=== PATIENT | male | born 1995 | race Caucasian/White ===

== ENCOUNTER 2016-10-01 13:25 | Emergency (ER) | payer MEDICAID ==
[~2016-10-01] VITALS: Ht 170.2 cm; Wt 68.2 kg
[~2016-10-01 13:25] MED LIST: BENADRYL50 MG PO; PEPCID 20MG TAB20 MG PO; PREDNISONE20 MG PO
[2016-10-01 13:29] VITALS: TEMP 99
[2016-10-01] MEDS ORDERED: TRIUMEQ PO (13:31)
[2016-10-01 15:43] LABS: ADJUSTED CALCIUM 9.3 mg/dL (8.4-10.2); ALBUMIN 4.6 gm/dL (3.5-5.0); BILIRUBIN,TOTAL 1.1 mg/dL (0.0-1.0); CALCIUM 9.8 mg/dL (8.4-10.2); CREATININE, serum 0.91 mg/dL (0.66-1.25); POTASSIUM 4.1 mmol/L (3.4-5.0); TOTAL PROTEIN 8.1 gm/dL (6.4-8.2)
[2016-10-01 15:44] LABS: BASO % 0.5 % (0.0-2.0); EOS # 0.2 (0.0-0.7); EOS % 2.6 % (0-4.0); GRAN # 4.5 (1.4-6.5); HEMATOCRIT 45.7 % (42.0-52.0); HEMOGLOBIN 16.1 g/dl (13.5-18.0); LYMPH # 2.9 (1.2-3.4); LYMPH % 34.2 % (20.0-51.0); MEAN CELL VOLUME 98 fl (80.0-100.0); MEAN CORPUSCULAR HEMOGLOBIN 34 pg (27.0-31.0); MEAN CORPUSCULAR HGB CONC 35 g/dl (33.0-37.0); MEAN PLATELET VOLUME 9.4 fl (7.4-10.4); MONO # 0.7 (0.1-0.6); MONO % 8.5 % (1.7-9.3); PLATELET COUNT 296 K/mm3 (130-400); RED BLOOD COUNT 4.68 M/mm3 (4.20-5.60); REDCELL DISTRIBUTION WIDTH-CV 12.1 % (11.5-14.5); WHITE BLOOD COUNT 8.3 K/mm3 (4.8-10.8)
[2016-10-01 16:13] LABS: PROTHROMBIN TIME 11.4 SECONDS (9.7-12.8)
[2016-10-01] MEDS ORDERED: NEXIUM 40MG40 MG PO (16:33)
[2016-10-01 17:19] LABS: PH 7 (5-8); SQUAMOUS EPITHELIAL 0-2 /hpf; URINE APPEARANCE Turbid; URINE BACTERIA Rare /hpf; URINE BILIRUBIN Negative (NEGATIVE); URINE BLOOD Negative (NEGATIVE); URINE COLOR Yellow; URINE GLUCOSE Negative (NEGATIVE); URINE KETONE Negative (NEGATIVE); URINE WBC None Seen /hpf
[2016-10-01 18:16] VITALS: BP 128/80; PULSE 78
== END 2016-10-01 18:19 | disposition home or self-care (01) ==
LOC: COL.ER 13:25
PROVIDERS: Emergency Medicine
DX: K92.0 Hematemesis (principal); R31.9 Hematuria, unspecified; B20 Human immunodeficiency virus [HIV] disease; R10.12 Left upper quadrant pain
CPT/HCPCS: C9113; J2405; J7030; Q9967

== ENCOUNTER 2017-05-09 17:30 | Emergency (ER) | payer SELFPAY ==
[~2017-05-09] VITALS: Ht 170.2 cm; Wt 72.7 kg
[~2017-05-09 17:30] MED LIST changes: +NEXIUM 40MG40 MG PO; +TRIUMEQ PO
[2017-05-09 17:32] VITALS: BP 119/70; TEMP 99
[2017-05-09] MEDS ORDERED: KLONOPIN 0.5MG0.5 MG PO (17:36)
[2017-05-09] MEDS ORDERED: [UNRECOGNIZED DRUG - OTHER] PO (17:36)
[2017-05-09] MEDS ORDERED: TRIUMEQ PO (17:36)
[2017-05-09] MEDS ORDERED: XANAX .25M0.25 MG/TA PO (17:37)
[2017-05-09] MEDS ORDERED: LEXAPRO20 MG PO (17:38)
[2017-05-09 18:17] LABS: COLLECTION METHOD CLEAN CATCH
[2017-05-09 18:32] LABS: AMORPHOUS CRYSTAL Present /uL; MUCOUS Present /lpf; PH 7 (5-8); SQUAMOUS EPITHELIAL None Seen /hpf; URINE APPEARANCE Turbid; URINE BACTERIA None Seen /hpf; URINE BILIRUBIN Negative (NEGATIVE); URINE BLOOD Negative (NEGATIVE); URINE COLOR Yellow; URINE GLUCOSE Negative (NEGATIVE); URINE KETONE Negative (NEGATIVE); URINE LEUKOCYTE ESTERASE 1+ (NEGATIVE); URINE PROTEIN(semi-quant) Negative (NEGATIVE); URINE RBC 0-2 /hpf; URINE UROBILINOGEN >=4.0 mg/dL (NEGATIVE); URINE WBC None Seen /hpf
[2017-05-09 18:32] LABS: BASO % 0.3 % (0.0-2.0); EOS # 0.3 (0.0-0.7); EOS % 4.1 % (0-4.0); GRAN # 3.2 (1.4-6.5); GRAN % 46.2 % (42.2-75.2); HEMATOCRIT 42.7 % (42.0-52.0); HEMOGLOBIN 14.7 g/dl (13.5-18.0); LYMPH # 2.8 (1.2-3.4); LYMPH % 39.6 % (20.0-51.0); MEAN CELL VOLUME 97 fl (80.0-100.0); MEAN CORPUSCULAR HEMOGLOBIN 33 pg (27.0-31.0); MEAN CORPUSCULAR HGB CONC 34 g/dl (33.0-37.0); MEAN PLATELET VOLUME 9.2 fl (7.4-10.4); MONO # 0.7 (0.1-0.6); MONO % 9.5 % (1.7-9.3); PLATELET COUNT 263 K/mm3 (130-400); RED BLOOD COUNT 4.42 M/mm3 (4.20-5.60)
[2017-05-09 18:34] LABS: ALBUMIN 4.4 gm/dL (3.5-5.0); BILIRUBIN,TOTAL 0.7 mg/dL (0.0-1.0); C-REACTIVE PROTEIN 1.1 mg/dL (0.0-0.9); CALCIUM 9.3 mg/dL (8.4-10.2); CREATININE, serum 0.91 mg/dL (0.66-1.25); POTASSIUM 4.1 mmol/L (3.4-5.0); TOTAL PROTEIN 7.3 gm/dL (6.4-8.2)
[2017-05-09 18:38] LABS: INFLUENZA A NEGATIVE; INFLUENZA B NEGATIVE
[2017-05-09 19:28] VITALS: PULSE 71
== END 2017-05-09 19:30 | disposition home or self-care (01) ==
LOC: COL.ER 17:30
PROVIDERS: Nurse Practitioner
DX: B34.9 Viral infection, unspecified (principal); S83.92XA Sprain of unspecified site of left knee, initial encounter; X50.1XXA Overexertion from prolonged static or awkward postures, initial encounter

== ENCOUNTER → 2018-01-24 | Emergency (ER) | payer BC, MEDICAID ==
[~2018-01-24] VITALS: Ht 170.2 cm; Wt 70.5 kg
[~2018-01-24] MED LIST changes: +CARAFATE 1GM1 G PO; +KLONOPIN 0.5MG0.5 MG PO; +LEXAPRO20 MG PO; +PROTONIX 40MG T40 MG PO; +TRIUMEQ1 TAB PO; +XANAX .25M0.25 MG/TA PO; +ZOFRAN ODT4 MG PO; +[UNRECOGNIZED DRUG - OTHER] PO
[2018-01-24 12:54] VITALS: BP 123/79; TEMP 98.8
[2018-01-24 13:21] LABS: BASO % 0.3 % (0.0-2.0); EOS # 0.1 (0.0-0.7); EOS % 2.2 % (0-4.0); GRAN # 3.1 (1.4-6.5); GRAN % 53.1 % (42.2-75.2); HEMATOCRIT 44.2 % (42.0-52.0); HEMOGLOBIN 15.1 g/dl (13.5-18.0); LYMPH # 2.1 (1.2-3.4); MEAN CELL VOLUME 95 fl (80.0-100.0); MEAN CORPUSCULAR HEMOGLOBIN 32 pg (27.0-31.0); MEAN CORPUSCULAR HGB CONC 34 g/dl (33.0-37.0); MEAN PLATELET VOLUME 8.9 fl (7.4-10.4); MONO # 0.5 (0.1-0.6); MONO % 9.1 % (1.7-9.3); PLATELET COUNT 257 K/mm3 (130-400); RED BLOOD COUNT 4.67 M/mm3 (4.20-5.60); REDCELL DISTRIBUTION WIDTH-CV 12.5 % (11.5-14.5)
[2018-01-24 13:34] LABS: ALANINE AMINOTRANSFERASE 24 U/L (21-72); ALBUMIN 4.5 gm/dL (3.5-5.0); ALKALINE PHOSPHATASE 54 U/L (50-136); ANION GAP 10 mmol/L (7-16); AST,SGOT 18 U/L (15-37); BILIRUBIN,TOTAL 0.8 mg/dL (0.0-1.0); BLOOD UREA NITROGEN 11 mg/dL (9-20); CALCIUM 9.4 mg/dL (8.4-10.2); CARBON DIOXIDE 31 mmol/L (22-30); CHLORIDE 101 mmol/L (98-107); CREATININE, serum 0.72 mg/dL (0.66-1.25); GLUCOSE 92 mg/dL (74-106); LIPASE 61 U/L (23-300); POTASSIUM 4.2 mmol/L (3.4-5.0); SODIUM 141 mmol/L (137-145)
[2018-01-24 13:40] LABS: C-REACTIVE PROTEIN < 0.5 mg/dL (0.0-0.9)
[2018-01-24 13:57] LABS: COLLECTION METHOD CLEAN CATCH
[2018-01-24 14:07] LABS: MUCOUS Present /lpf; PH 7 (5-8); SQUAMOUS EPITHELIAL None Seen /hpf; URINE APPEARANCE Clear; URINE BACTERIA None Seen /hpf; URINE BILIRUBIN Negative (NEGATIVE); URINE BLOOD Negative (NEGATIVE); URINE COLOR Yellow; URINE GLUCOSE Negative (NEGATIVE); URINE KETONE Negative (NEGATIVE); URINE LEUKOCYTE ESTERASE Negative (NEGATIVE); URINE NITRATE Negative (NEGATIVE); URINE PROTEIN(semi-quant) Negative (NEGATIVE); URINE RBC 0-2 /hpf; URINE UROBILINOGEN >=4.0 mg/dL (NEGATIVE)
[2018-01-24 15:22] VITALS: PULSE 81
== END ==
LOC: COL.ER 12:31
PROVIDERS: Emergency Medicine
DX: R11.2 Nausea with vomiting, unspecified (principal); R19.7 Diarrhea, unspecified; F41.9 Anxiety disorder, unspecified; Z21 Asymptomatic human immunodeficiency virus [HIV] infection status
CPT/HCPCS: C9113; J2405; J7030

== ENCOUNTER 2018-01-25 17:32 | Emergency (ER) | payer BC, MEDICAID ==
[~2018-01-25] VITALS: Ht 170.2 cm; Wt 71.8 kg
[~2018-01-25 17:32] MED LIST changes: -TRIUMEQ1 TAB PO
[2018-01-25 17:34] VITALS: TEMP 99.1
[2018-01-25 18:03] LABS: COLLECTION METHOD CLEAN CATCH
[2018-01-25 18:09] LABS: MUCOUS Present /lpf; PH 6 (5-8); SQUAMOUS EPITHELIAL 0-2 /hpf; URINE APPEARANCE Clear; URINE BACTERIA None Seen /hpf; URINE BILIRUBIN Negative (NEGATIVE); URINE BLOOD Negative (NEGATIVE); URINE COLOR Yellow; URINE GLUCOSE Negative (NEGATIVE); URINE KETONE Negative (NEGATIVE); URINE LEUKOCYTE ESTERASE Negative (NEGATIVE); URINE NITRATE Negative (NEGATIVE); URINE PROTEIN(semi-quant) Negative (NEGATIVE); URINE RBC 0-2 /hpf
[2018-01-25 18:14] LABS: TRICYCLIC ANTIDEPRESS URINE NEGATIVE
[2018-01-25] MEDS ORDERED: TRIUMEQ1 TAB PO (18:25)
[2018-01-25 18:31] LABS: BASO % 0.3 % (0.0-2.0); EOS # 0.1 (0.0-0.7); EOS % 1.4 % (0-4.0); GRAN # 3.8 (1.4-6.5); GRAN % 60.1 % (42.2-75.2); HEMATOCRIT 43.4 % (42.0-52.0); HEMOGLOBIN 15.2 g/dl (13.5-18.0); LYMPH % 30.6 % (20.0-51.0); MEAN CELL VOLUME 92 fl (80.0-100.0); MEAN CORPUSCULAR HEMOGLOBIN 32 pg (27.0-31.0); MEAN CORPUSCULAR HGB CONC 35 g/dl (33.0-37.0); MEAN PLATELET VOLUME 8.8 fl (7.4-10.4); MONO # 0.5 (0.1-0.6); MONO % 7.3 % (1.7-9.3); PLATELET COUNT 245 K/mm3 (130-400); REDCELL DISTRIBUTION WIDTH-CV 12.3 % (11.5-14.5)
[2018-01-25 18:47] LABS: ALANINE AMINOTRANSFERASE 21 U/L (21-72); ALBUMIN 4.6 gm/dL (3.5-5.0); ALKALINE PHOSPHATASE 52 U/L (50-136); ANION GAP 11 mmol/L (7-16); AST,SGOT 25 U/L (15-37); BILIRUBIN,TOTAL 1.2 mg/dL (0.0-1.0); BLOOD UREA NITROGEN 10 mg/dL (9-20); CALCIUM 9.4 mg/dL (8.4-10.2); CARBON DIOXIDE 28 mmol/L (22-30); CHLORIDE 100 mmol/L (98-107); CREATININE, serum 0.86 mg/dL (0.66-1.25); GLUCOSE 111 mg/dL (74-106); POTASSIUM 3.6 mmol/L (3.4-5.0); SODIUM 139 mmol/L (137-145); TOTAL PROTEIN 7.9 gm/dL (6.4-8.2)
[2018-01-25 18:56] LABS: ACETAMINOPHEN < 10 ug/mL (10-30); ALCOHOL(ethanol),MEDICAL < 10 mg/dL; SALICYLATE < 1.0 mg/dL
[2018-01-25 21:15] VITALS: BP 127/81; PULSE 98
== END 2018-01-25 21:15 | disposition home or self-care (01) ==
LOC: COL.ER 17:32
PROVIDERS: Nurse Practitioner
DX: F32.9 Major depressive disorder, single episode, unspecified (principal); F41.9 Anxiety disorder, unspecified; Z88.0 Allergy status to penicillin; Z21 Asymptomatic human immunodeficiency virus [HIV] infection status

== ENCOUNTER 2018-04-25 14:30 | Outpatient (RCR) | payer BC, OTHER ==
[~2018-04-25 14:30] MED LIST changes: +TRIUMEQ1 TAB PO
== END 2018-07-24 | disposition home or self-care (01) ==
LOC: MKS.ESL.PT
DX: M51.36 Other intervertebral disc degeneration, lumbar region (principal); M41.84 Other forms of scoliosis, thoracic region; Z79.899 Other long term (current) drug therapy

== ENCOUNTER 2018-09-03 01:09 | Emergency (ER) | payer BC, OTHER ==
[~2018-09-03] VITALS: Ht 170.2 cm; Wt 70.5 kg
[2018-09-03 01:21] VITALS: BP 119/62; PULSE 88; TEMP 99
[2018-09-03] MEDS ORDERED: STRIBILD1 TAB PO (04:08)
[2018-09-03 04:27] LABS: BASO % 0.3 % (0.0-2.0); EOS # 0.2 (0.0-0.7); EOS % 1.9 % (0-4.0); GRAN # 4.4 (1.4-6.5); HEMATOCRIT 40.9 % (42.0-52.0); LYMPH # 3.6 (1.2-3.4); LYMPH % 39.5 % (20.0-51.0); MEAN CELL VOLUME 95 fl (80.0-100.0); MEAN CORPUSCULAR HEMOGLOBIN 33 pg (27.0-31.0); MEAN CORPUSCULAR HGB CONC 34 g/dl (33.0-37.0); MEAN PLATELET VOLUME 9.2 fl (7.4-10.4); MONO # 0.8 (0.1-0.6); PLATELET COUNT 263 K/mm3 (130-400); RED BLOOD COUNT 4.29 M/mm3 (4.20-5.60); REDCELL DISTRIBUTION WIDTH-CV 12.2 % (11.5-14.5)
[2018-09-03 04:38] LABS: ALBUMIN 4.4 gm/dL (3.5-5.0); BILIRUBIN,TOTAL 0.3 mg/dL (0.0-1.0); CALCIUM 9.5 mg/dL (8.4-10.2); POTASSIUM 4.5 mmol/L (3.4-5.0); TOTAL PROTEIN 7.4 gm/dL (6.4-8.2)
[2018-09-03] MEDS ORDERED: BACTRIM DS 8001 TAB PO (04:51)
== END 2018-09-03 05:08 | disposition home or self-care (01) ==
LOC: COL.ER 01:09
PROVIDERS: Emergency Medicine
DX: J18.1 Lobar pneumonia, unspecified organism (principal)

== ENCOUNTER 2019-07-03 22:21 | Emergency (ER) | payer BC, MEDICAID ==
[~2019-07-03] VITALS: Ht 170.2 cm; Wt 72.7 kg
[~2019-07-03 22:21] MED LIST changes: +BACTRIM DS 8001 TAB PO; +STRIBILD1 TAB PO
[2019-07-03 23:08] VITALS: BP 115/57; PULSE 98; TEMP 99.6
[2019-07-04 00:05] LABS: COLLECTION METHOD CLEAN CATCH
[2019-07-04 00:12] LABS: MUCOUS Present /lpf; PH 5 (5-8); SQUAMOUS EPITHELIAL None Seen /hpf; URINE APPEARANCE Clear; URINE BACTERIA None Seen /hpf; URINE BILIRUBIN Negative (NEGATIVE); URINE BLOOD 1+ (NEGATIVE); URINE COLOR Yellow; URINE GLUCOSE Negative (NEGATIVE); URINE KETONE Negative (NEGATIVE); URINE LEUKOCYTE ESTERASE Negative (NEGATIVE); URINE NITRATE Negative (NEGATIVE); URINE PROTEIN(semi-quant) Negative (NEGATIVE); URINE RBC 0-2 /hpf; URINE UROBILINOGEN >=4.0 mg/dL (NEGATIVE)
[2019-07-04 00:20] LABS: TRICYCLIC ANTIDEPRESS URINE NEGATIVE
[2019-07-04 00:51] LABS: BASO % 0.4 % (0.0-2.0); EOS # 0.2 (0.0-0.7); EOS % 2.5 % (0-4.0); GRAN # 2.9 (1.4-6.5); GRAN % 42.5 % (42.2-75.2); HEMATOCRIT 43.5 % (42.0-52.0); LYMPH # 3.1 (1.2-3.4); LYMPH % 45.8 % (20.0-51.0); MEAN CELL VOLUME 93 fl (80.0-100.0); MEAN CORPUSCULAR HEMOGLOBIN 32 pg (27.0-31.0); MEAN CORPUSCULAR HGB CONC 35 g/dl (33.0-37.0); MEAN PLATELET VOLUME 9.4 fl (7.4-10.4); MONO # 0.6 (0.1-0.6); MONO % 8.7 % (1.7-9.3); PLATELET COUNT 279 K/mm3 (130-400); RED BLOOD COUNT 4.69 M/mm3 (4.20-5.60); REDCELL DISTRIBUTION WIDTH-CV 12.5 % (11.5-14.5)
[2019-07-04 01:10] LABS: ALANINE AMINOTRANSFERASE 16 U/L (21-72); ALBUMIN 4.8 gm/dL (3.5-5.0); ALKALINE PHOSPHATASE 57 U/L (50-136); ANION GAP 10 mmol/L (7-16); AST,SGOT 14 U/L (15-37); BILIRUBIN,TOTAL 0.7 mg/dL (0.0-1.0); BLOOD UREA NITROGEN 8 mg/dL (9-20); CALCIUM 9.4 mg/dL (8.4-10.2); CARBON DIOXIDE 27 mmol/L (22-30); CHLORIDE 107 mmol/L (98-107); CREATININE, serum 0.77 (0.66-1.25); GLUCOSE 103 mg/dL (74-106); POTASSIUM 3.9 mmol/L (3.4-5.0); SODIUM 143 mmol/L (137-145); TOTAL PROTEIN 7.9 gm/dL (6.4-8.2)
[2019-07-04 01:14] LABS: ACETAMINOPHEN < 10 ug/mL (10-30); ALCOHOL(ethanol),MEDICAL < 10 mg/dL; C-REACTIVE PROTEIN < 0.5 mg/dL (0.0-0.9); SALICYLATE < 1.0 mg/dL
[2019-07-06] MEDS ORDERED: XANAX .25M0.25 MG/TA PO (00:39)
[2019-07-06] MEDS ORDERED: TRIUMEQ1 TAB PO (00:40)
== END 2019-07-04 04:30 | disposition home or self-care (01) ==
LOC: COL.ER 22:21
PROVIDERS: Nurse Practitioner
DX: T74.11XA Adult physical abuse, confirmed, initial encounter (principal); S80.01XA Contusion of right knee, initial encounter; R52 Pain, unspecified; F41.9 Anxiety disorder, unspecified; F32.9 Major depressive disorder, single episode, unspecified; F15.90 Other stimulant use, unspecified, uncomplicated; R40.2412 Glasgow coma scale score 13-15, at arrival to emergency department; Z21 Asymptomatic human immunodeficiency virus [HIV] infection status; Z88.0 Allergy status to penicillin; X58.XXXA Exposure to other specified factors, initial encounter
CPT/HCPCS: J2060; J7030

== ENCOUNTER 2019-07-05 19:48 | Emergency (ER) | payer BC, MEDICAID ==
[~2019-07-05] VITALS: Ht 170.2 cm; Wt 68.2 kg
[2019-07-05 21:03] VITALS: BP 105/76; PULSE 70; TEMP 98
[2019-07-06] MEDS ORDERED: XANAX .25M0.25 MG/TA PO (00:39)
[2019-07-06] MEDS ORDERED: TRIUMEQ1 TAB PO (00:40)
== END 2019-07-05 22:28 | disposition left against medical advice (07) ==
LOC: COL.ER 19:48
DX: M25.561 Pain in right knee (principal)

== ENCOUNTER → 2019-07-05 | Outpatient (REF) | LOC: COL.ER 19:20 | DX: T74.21XA Adult sexual abuse, confirmed, initial encounter (principal) ==

== ENCOUNTER 2020-05-07 08:39 | Emergency (ER) | payer BC, MEDICAID ==
[~2020-05-07] VITALS: Ht 170.2 cm; Wt 68.2 kg
[2020-05-07 08:50] VITALS: TEMP 98.3
[2020-05-07 09:53] LABS: BASO % 0.2 % (0.0-2.0); EOS # 0.1 (0.0-0.7); EOS % 0.8 % (0-4.0); GRAN # 4.9 (1.4-6.5); GRAN % 56.8 % (42.2-75.2); HEMATOCRIT 42.5 % (42.0-52.0); HEMOGLOBIN 14.5 g/dl (13.5-18.0); LYMPH # 2.9 (1.2-3.4); LYMPH % 33.7 % (20.0-51.0); MEAN CELL VOLUME 94 fl (80.0-100.0); MEAN CORPUSCULAR HEMOGLOBIN 32 pg (27.0-31.0); MEAN CORPUSCULAR HGB CONC 34 g/dl (33.0-37.0); MEAN PLATELET VOLUME 8.8 fl (7.4-10.4); MONO # 0.7 (0.1-0.6); MONO % 8.1 % (1.7-9.3); PLATELET COUNT 262 K/mm3 (130-400); RED BLOOD COUNT 4.54 M/mm3 (4.20-5.60); REDCELL DISTRIBUTION WIDTH-CV 13.1 % (11.5-14.5)
[2020-05-07 10:02] LABS: ALANINE AMINOTRANSFERASE 14 U/L (4-49); ALBUMIN 4.7 gm/dL (3.5-5.0); ALKALINE PHOSPHATASE 66 U/L (50-136); ANION GAP 8 mmol/L (7-16); AST,SGOT 22 U/L (15-37); BILIRUBIN,TOTAL 0.9 mg/dL (0.0-1.0); BLOOD UREA NITROGEN 11 mg/dL (9-20); CALCIUM 9.4 mg/dL (8.4-10.2); CARBON DIOXIDE 27 mmol/L (22-30); CHLORIDE 102 mmol/L (98-107); GLUCOSE 114 mg/dL (74-106); POTASSIUM 3.8 mmol/L (3.4-5.0); SODIUM 137 mmol/L (137-145); TOTAL PROTEIN 7.7 gm/dL (6.4-8.2)
[2020-05-07 10:14] LABS: TROPONIN-I < 0.012 ng/mL (0.000-0.035)
[2020-05-07 10:22] LABS: COLLECTION METHOD CLEAN CATCH
[2020-05-07 10:43] LABS: MUCOUS Present /lpf; PH 5 (5-8); SQUAMOUS EPITHELIAL 0-2 /hpf; URINE APPEARANCE Hazy; URINE BACTERIA None Seen /hpf; URINE BILIRUBIN Positive (NEGATIVE); URINE BLOOD Negative (NEGATIVE); URINE CALCIUM OXALATE CRYSTAL Present /hpf; URINE COLOR Amber; URINE GLUCOSE Negative (NEGATIVE); URINE KETONE Trace (NEGATIVE); URINE LEUKOCYTE ESTERASE Negative (NEGATIVE); URINE NITRATE Negative (NEGATIVE); URINE PROTEIN(semi-quant) 2+ (NEGATIVE); URINE UROBILINOGEN Negative (NEGATIVE)
[2020-05-07 11:09] LABS: TRICYCLIC ANTIDEPRESS URINE NEGATIVE
[2020-05-07] MEDS ORDERED: VOLTAREN 75 DR75 MG PO (11:25)
[2020-05-07 12:44] VITALS: BP 150/80; PULSE 95
== END 2020-05-07 11:50 | disposition home or self-care (01) ==
LOC: COL.ER 08:39
PROVIDERS: Emergency Medicine
DX: S00.01XA Abrasion of scalp, initial encounter (principal); M54.2 Cervicalgia; R55 Syncope and collapse; B20 Human immunodeficiency virus [HIV] disease; F32.9 Major depressive disorder, single episode, unspecified; F41.9 Anxiety disorder, unspecified; Z88.0 Allergy status to penicillin; X50.1XXA Overexertion from prolonged static or awkward postures, initial encounter; Y93.01 Activity, walking, marching and hiking; Y92.091 Bathroom in other non-institutional residence as the place of occurrence of the external cause
CPT/HCPCS: J1885

== ENCOUNTER 2020-11-24 14:08 | Emergency (ER) | payer BC, MEDICAID ==
[~2020-11-24] VITALS: Ht 170.2 cm; Wt 70.5 kg
[~2020-11-24 14:08] MED LIST changes: +VOLTAREN 75 DR75 MG PO
[2020-11-24 14:12] VITALS: TEMP 98.6
[2020-11-24 16:20] VITALS: BP 117/80; PULSE 88
== END 2020-11-24 16:26 | disposition home or self-care (01) ==
LOC: COL.ER 14:08
DX: S01.01XA Laceration without foreign body of scalp, initial encounter (principal); F07.81 Postconcussional syndrome; Y04.2XXA Assault by strike against or bumped into by another person, initial encounter; Y92.009 Unspecified place in unspecified non-institutional (private) residence as the place of occurrence of the external cause
CPT/HCPCS: J1885

== ENCOUNTER 2021-03-10 13:24 | Emergency (ER) | payer BC, MEDICAID ==
[~2021-03-10] VITALS: Ht 170.2 cm; Wt 68.2 kg
[2021-03-10 13:33] VITALS: TEMP 98.3
[2021-03-10 14:06] LABS: HEMOGLOBIN 14.6 g/dl (13.5-18.0); MEAN CELL VOLUME 93 fl (80.0-100.0); MEAN CORPUSCULAR HEMOGLOBIN 32 pg (27.0-31.0); MEAN CORPUSCULAR HGB CONC 34 g/dl (33.0-37.0); MEAN PLATELET VOLUME 9.1 fl (7.4-10.4); PLATELET COUNT 377 K/mm3 (130-400); RED BLOOD COUNT 4.61 M/mm3 (4.20-5.60); REDCELL DISTRIBUTION WIDTH-CV 12.5 % (11.5-14.5)
[2021-03-10 14:37] LABS: ALBUMIN 3.9 gm/dL (3.5-5.0); BILIRUBIN,TOTAL 0.4 mg/dL (0.2-1.2); CALCIUM 9.3 mg/dL (8.4-10.2); CREATININE, serum 0.9 mg/dL (0.72-1.25); POTASSIUM 4.3 mmol/L (3.5-4.5); TOTAL PROTEIN 7.4 gm/dL (6.2-8.1)
[2021-03-10 14:41] LABS: EOSINOPHIL 4 % (0-4); LYMPHOCYTE 43 % (20.0-51.0); NEUTROPHILS 46 % (42.0-75.2)
[2021-03-10 14:44] LABS: PLATELET ESTIMATE NORMAL (NORMAL)
[2021-03-10] MEDS ORDERED: PERCOCET 325 MG1 TA2 PO (16:33)
[2021-03-10] MEDS ORDERED: PREDNISONE20 MG PO (16:33)
[2021-03-10] MEDS ORDERED: CIPRO 500MG TA500 MG PO (16:33)
[2021-03-10] MEDS ORDERED: FLAGYL500 MG PO (16:33)
[2021-03-10 16:40] VITALS: BP 131/89; PULSE 60
== END 2021-03-10 16:42 | disposition home or self-care (01) ==
LOC: COL.ER 13:24
PROVIDERS: Personal Emergency Response Attendant
DX: K62.89 Other specified diseases of anus and rectum (principal); Z21 Asymptomatic human immunodeficiency virus [HIV] infection status; Z79.899 Other long term (current) drug therapy
CPT/HCPCS: J0696; J1200; J2405; J2930; J7030; Q9967

== ENCOUNTER 2022-01-05 20:21 | Emergency (ER) | payer BC, MEDICAID ==
[~2022-01-05] VITALS: Ht 170.2 cm; Wt 63.6 kg
[~2022-01-05 20:21] MED LIST changes: +CIPRO 500MG TA500 MG PO; +FLAGYL500 MG PO; +PERCOCET 325 MG1 TA2 PO
[2022-01-05 20:45] LABS: BASO % 0.2 % (0.0-2.0); EOS # 0.1 K/mm3 (0.0-0.7); EOS % 0.9 % (0.0-4.0); GRAN # 5.8 K/mm3 (1.4-6.5); GRAN % 48.2 % (42.2-75.2); HEMATOCRIT 47.6 % (42.0-52.0); LYMPH # 5.4 K/mm3 (1.2-3.4); LYMPH % 44.3 % (20.0-51.0); MEAN CELL VOLUME 88 fl (80.0-100.0); MEAN CORPUSCULAR HEMOGLOBIN 31 pg (27-31); MEAN CORPUSCULAR HGB CONC 36 g/dl (33.0-37.0); MEAN PLATELET VOLUME 8.9 fl (7.4-10.4); MONO # 0.7 K/mm3 (0.1-0.6); MONO % 6.1 % (1.7-9.3); PLATELET COUNT 375 K/mm3 (130-400); RED BLOOD COUNT 5.42 M/mm3 (4.20-5.60); REDCELL DISTRIBUTION WIDTH-CV 12.3 % (11.5-14.5)
[2022-01-05 21:05] LABS: ALANINE AMINOTRANSFERASE 12 U/L (0-55); ALBUMIN 4.7 gm/dL (3.5-5.0); ALKALINE PHOSPHATASE 95 U/L (40-150); ANION GAP 20 mmol/L (7-16); AST,SGOT 12 U/L (5-34); BILIRUBIN,TOTAL 0.6 mg/dL (0.2-1.2); BLOOD UREA NITROGEN 16 mg/dL (9-21); CALCIUM 10.3 mg/dL (8.4-10.2); CARBON DIOXIDE 15 mmol/L (22-29); CHLORIDE 105 mmol/L (98-107); CREATININE, serum 1.17 mg/dL (0.72-1.25); GLUCOSE 87 mg/dL (70-99); POTASSIUM 4.1 mmol/L (3.5-4.5); SODIUM 140 mmol/L (136-145); TOTAL PROTEIN 9.2 gm/dL (6.2-8.1)
[2022-01-05 21:10] LABS: ALCOHOL(ethanol),MEDICAL < 10 mg/dL (0-10)
[2022-01-05 21:45] VITALS: TEMP 98.6
[2022-01-05 22:00] LABS: COLLECTION METHOD CLEAN CATCH
[2022-01-05 22:14] LABS: MUCOUS Present (NOT PRESENT); PH 6 (5-8); SQUAMOUS EPITHELIAL 0-2 /hpf (0-10); URINE APPEARANCE Hazy (CLEAR/HAZY); URINE BACTERIA None Seen /hpf (NONE SEEN); URINE BLOOD 1+ (NEGATIVE); URINE COLOR Yellow (YELLOW); URINE GLUCOSE Negative (NEGATIVE); URINE KETONE Trace (NEGATIVE); URINE NITRATE Negative (NEGATIVE); URINE PROTEIN(semi-quant) 1+ (NEGATIVE); URINE UROBILINOGEN >=4.0 (NEGATIVE)
[2022-01-05 22:36] LABS: TRICYCLIC ANTIDEPRESS URINE NEGATIVE
[2022-01-06 02:47] VITALS: BP 108/75; PULSE 90
--- NOTE | 2022-01-06 03:11 | NUR ---
PT COVID +. IN ER. RECIEVED CALL FROM NURSING IN ER THAT PT WAS GOING TO BE INTUBATED. RT X2 IN ROOM. CONFIRMED TUBE PLACEMENT WITH ETCO2 COLOR CHANGE, XRAY, AND BILAT BREATH SOUNDS. XRAY INDICATED TO ADVANCE TUBE BY 2CM. TUBE PLACEMENT ADVANCED FROM 23CM AT TEETH TO 25CM AT TEETH. AFTER ETT ADVANCED RT WAS ABLE TO GET BETTER TIDAL VOLUMES.
--- NOTE | 2022-01-06 03:16 | NUR ---
THIS RT DID NOT VISUALIZE PT NUMBERS AT THIS TIME. PT UNAVAILABLE AT THIS TIME
[2022-01-07 09:10] LABS: CD4 CD8 Ratio 0.57 (1.00-2.90); CD4 Helper T Cell 26.9 % (29.0-59.0); CD8 Suppressor T Cells 47.6 % (18.0-36.0); Lymphocyte,Absolute 4070 mm3 (1500-4000)
[2022-01-13 07:22] LABS: HIV 1 RNA IU 2104 (<=39); HIV 1 RNA LOG 3.32 Log/mL (<=1.59)
== END 2022-01-06 00:50 | disposition short-term general hospital (02) ==
LOC: COL.ER 20:21
PROVIDERS: Emergency Medicine
DX: U07.1 COVID-19 (principal); G40.901 Epilepsy, unspecified, not intractable, with status epilepticus
CPT/HCPCS: A4314; J1953; J2060; J2250; J2405; J2704; J3360; J7030; Q2009

== ENCOUNTER 2022-01-09 21:58 | Inpatient (IN) | payer OTHER, BC, MEDICAID ==
[~2022-01-09] VITALS: Ht 170.2 cm; Wt 70.0 kg
[2022-01-09 22:26] LABS: BASO % 0.3 % (0.0-2.0); EOS # 0.1 K/mm3 (0.0-0.7); EOS % 0.9 % (0.0-4.0); GRAN # 3.5 K/mm3 (1.4-6.5); GRAN % 46.6 % (42.2-75.2); HEMOGLOBIN 14.5 g/dl (13.5-18.0); LYMPH # 3.2 K/mm3 (1.2-3.4); LYMPH % 42.6 % (20.0-51.0); MEAN CELL VOLUME 89 fl (80.0-100.0); MEAN CORPUSCULAR HEMOGLOBIN 31 pg (27-31); MEAN CORPUSCULAR HGB CONC 35 g/dl (33.0-37.0); MONO # 0.7 K/mm3 (0.1-0.6); MONO % 9.3 % (1.7-9.3); PLATELET COUNT 339 K/mm3 (130-400); RED BLOOD COUNT 4.62 M/mm3 (4.20-5.60); REDCELL DISTRIBUTION WIDTH-CV 12.2 % (11.5-14.5)
[2022-01-09 22:40] LABS: ALBUMIN 4.1 gm/dL (3.5-5.0); BILIRUBIN,TOTAL 0.3 mg/dL (0.2-1.2); CALCIUM 9.9 mg/dL (8.4-10.2); CREATININE, serum 1.08 mg/dL (0.72-1.25); POTASSIUM 3.9 mmol/L (3.5-4.5); TOTAL PROTEIN 8.2 gm/dL (6.2-8.1)
[2022-01-10] VITALS (843 sets, daily range): BP systolic 101–133; BP diastolic 54–80; PULSE 71–89; TEMP 97–98.9; O2SAT 84–100
[2022-01-10 00:54] LABS: COLLECTION METHOD CLEAN CATCH
[2022-01-10 01:01] LABS: MUCOUS Present (NOT PRESENT); PH 7 (5-8); SQUAMOUS EPITHELIAL None Seen /hpf (0-10); TRICYCLIC ANTIDEPRESS URINE NEGATIVE; URINE APPEARANCE Hazy (CLEAR/HAZY); URINE BACTERIA None Seen /hpf (NONE SEEN); URINE BLOOD Negative (NEGATIVE); URINE COLOR Yellow (YELLOW); URINE GLUCOSE Negative (NEGATIVE); URINE KETONE Trace (NEGATIVE); URINE NITRATE Negative (NEGATIVE); URINE PROTEIN(semi-quant) Negative (NEGATIVE); URINE UROBILINOGEN Negative (NEGATIVE)
[2022-01-10] MEDS ORDERED: DRISDOL50000 IU PO (01:17)
[2022-01-10 01:50] LABS: PROLACTIN 19.6 ng/mL (3.46-19.40)
[2022-01-10 02:01] LABS: VALPROIC ACID (DEPAKENE) 36.9 ug/mL (43.5-90.5)
[2022-01-10] MEDS ORDERED: LEXAPRO20 MG PO (03:34)
[2022-01-10] MEDS ORDERED: DESYREL 100MG100 MG PO (03:34)
[2022-01-10] MEDS ORDERED: DEPAKOTE500 MG PO (03:34)
[2022-01-10 06:00] LABS: BASO % 0.3 % (0.0-2.0); EOS # 0.1 K/mm3 (0.0-0.7); EOS % 2.1 % (0.0-4.0); GRAN # 2.3 K/mm3 (1.4-6.5); GRAN % 40.1 % (42.2-75.2); HEMATOCRIT 38.6 % (42.0-52.0); HEMOGLOBIN 13.5 g/dl (13.5-18.0); LYMPH # 2.7 K/mm3 (1.2-3.4); LYMPH % 46.1 % (20.0-51.0); MEAN CELL VOLUME 90 fl (80.0-100.0); MEAN CORPUSCULAR HEMOGLOBIN 31 pg (27-31); MEAN CORPUSCULAR HGB CONC 35 g/dl (33.0-37.0); MEAN PLATELET VOLUME 9.2 fl (7.4-10.4); MONO # 0.7 K/mm3 (0.1-0.6); MONO % 11.2 % (1.7-9.3); PLATELET COUNT 306 K/mm3 (130-400); REDCELL DISTRIBUTION WIDTH-CV 12.3 % (11.5-14.5)
[2022-01-10 06:06] LABS: CALCIUM 9.6 mg/dL (8.4-10.2); CREATININE, serum 0.89 mg/dL (0.72-1.25)
--- NOTE | 2022-01-10 07:12 | NUR ---
RECEIVED SHIFT REPORT FROM MARNIE BEACH. PATIENT IS RESTING IN BED. COMPLAINTS OF HEADACHE. VSS, CALL LIGHT WITHIN REACH, INT SITE IN PLACE WITH NORMAL SALINE.
--- NOTE | 2022-01-10 11:00 | NUR ---
DR. CARABALLO AT BEDSIDE. DISCUSSED PLAN OF CARE AND PATIENT WANTING A STRONGER MEDICATION FOR HIS HEADACHE. ORDERS RECEIVED.
--- NOTE | 2022-01-10 13:21 | NUR ---
WAS INFORMED BY THE TAR POT MAN THAT THE PATIENT WAS SEIZING AT 1306 . CAME INTO THE ROOM EMERGENTLY TO PATIENT IN "CONVULSIONS", DIAPHORETIC AND ELEVATED HEART RATE IN THE 160s-170s. PATIENT HAD TOLD GUARDS THAT HE WAS GOING TO TRY TO REST PRIOR. ADMINISTERED ATIVAN AND INFORMED PATIENT THAT WE WERE GOING TO GIVE PATIENT MEDICATION TO HELP CALM HIM DOWN. THEN PATIENT SEEMED TO TIRE OUT AND RELAX FOR ABOUT A MINUTE. PATIENT BEGAN TO SEIZE AGAIN AND THIS NURSE ADMINISTERED VALIUM. PATIENT CALMED DOWN AGAIN SHORTLY AFTER. PATIENT DID NOT GO INTO POSTICTAL PHASE. PATIENT CAME OUT OF SEIZURE AND IMMEDIATELY ASKED, "WHERE AM I? WHAT HAPPENED?" ASKED THE PATIENT ORIENTATION QUESTIONS. PATIENT STATED HE DID NOT KNOW THE ANSWER TO THESE QUESTIONS OR EVEN WHO THIS NURSE WAS.
--- NOTE | 2022-01-10 15:21 | NUR ---
Director Of Professional Services attempted to meet with patient for intake assessment/discharge planning. Director Of Professional Services is informed patient is in isolation precautions at this time. He is currently incarcerated and has 1 month left of his sentence before release; supervisor dog license officer is at bedside. Per [facility], hospital staff may not speak directly to patient family as patient mother and grandmother have been calling the unit. [facility] staff will update patient family. [facility] is patient emergency contact. Director Of Professional Services will continue to follow for discharge needs. *Discharge plan: return to [facility]*
--- NOTE | 2022-01-10 15:25 | NUR ---
TOOK PATIENT TO CT SCAN. HAD A "SEIZURE" WHICH LASTED A FEW SECONDS AND PRESENTED ITSELF A ROW OF SNEEZES. WE WERE ABLE TO STILL GET THE SCAN
[2022-01-11] VITALS (806 sets, daily range): BP systolic 93–148; BP diastolic 50–75; PULSE 41–145; TEMP 97–98.1; O2SAT 77–100
--- NOTE | 2022-01-11 02:34 | NUR ---
0227 - pt having more seizure-like activity. gross jerking motions noted but with non-fixed eyes and moveable limbs, not rigid. prn iv valium given. seizure lasted until approximately 0232. vss. provider notified.
--- NOTE | 2022-01-11 07:00 | NUR ---
PT SITTING UP IN BED EATING BREAKFAST. VSS. NS RUNNING. GAURD BEDSIDE. CALL LIGHT WITHIN REACH.
[2022-01-11 07:09] LABS: BASO % 0.4 % (0.0-2.0); EOS # 0.2 K/mm3 (0.0-0.7); EOS % 3.2 % (0.0-4.0); GRAN # 1.7 K/mm3 (1.4-6.5); HEMOGLOBIN 12.4 g/dl (13.5-18.0); LYMPH # 2.6 K/mm3 (1.2-3.4); LYMPH % 53.3 % (20.0-51.0); MEAN CELL VOLUME 91 fl (80.0-100.0); MEAN CORPUSCULAR HEMOGLOBIN 31 pg (27-31); MEAN CORPUSCULAR HGB CONC 34 g/dl (33.0-37.0); MONO # 0.4 K/mm3 (0.1-0.6); MONO % 8.9 % (1.7-9.3); PLATELET COUNT 275 K/mm3 (130-400); RED BLOOD COUNT 3.97 M/mm3 (4.20-5.60); REDCELL DISTRIBUTION WIDTH-CV 12.3 % (11.5-14.5)
[2022-01-11 07:11] LABS: HEMATOCRIT 36.1 % (42.0-52.0)
[2022-01-11 07:32] LABS: ALBUMIN 3.4 gm/dL (3.5-5.0); CALCIUM 8.9 mg/dL (8.4-10.2); CREATININE, serum 0.72 mg/dL (0.72-1.25); MAGNESIUM 1.8 mg/dL (1.6-2.6); PHOSPHOROUS 3.1 mg/dL (2.3-4.7); POTASSIUM 3.9 mmol/L (3.5-4.5)
--- NOTE | 2022-01-11 08:20 | NUR ---
0735- PT FELL OUT OF BED HAVING A SEIZURE. PT PICKED UP AND PUT BACK IN BED. MOUTH SUCTIONED. IV ACCESS LOST, NEW IV PLACED. 0740- VALUM 5MG GIVEN. PT STILL SEIZING. CALLED. 0745- ATIVAN 1MG GIVEN. STILL ACTIVELY SEIZING. PT HR IN THE 170'S. 0747- PT VOMMITTING, ORAL SUCTION AND TURNED ON SIDE. 0747- ATIVAN 2MG GIVEN PER . PT STILL SEIZING. 0750- VALIUM 5MG GIVE, ER CALLED FOR INTUBATION. NOTIFIED. PT SUCTIONED. 0752- PT STOPPED SEIZING. PT LETHARGIC BUT ABLE TO ANSWER NAME AND FOLLOW COMMANDS. VSS. 0758- PT APPEARS TO HAVE BROKEN NOSE, STATES PAIN TO NOSE AND FACE. PT ASKING WHAT HAPPED. PT INFORMED. SEIZURE PADS IN PLACE, BED ALARM ACTIVE. BED LOW. 0810- LABS DRAWN
--- NOTE | 2022-01-11 09:26 | NUR ---
ENT OFFICE FOR CONSULT. BUT THERE IS NO ENT DIRECTOR THE WEEK, NOTIFIED. MESSAGE LEFT FOR FOR CONULT.
--- NOTE | 2022-01-11 11:19 | NUR ---
[employer] [facility] once [facility] is medically stable for discharge, [facility].
--- NOTE | 2022-01-11 11:34 | NUR ---
4055-CALLED FROM CT THAT PT IS HAVING A SEIZURE. RAN TO CT. ADOBE BALL MIXER CALLED, RT CALLED, AND PHARMACY CALLED FOR ATIVAN. TOTAL OF 5 VALIUM AND 3 OF ATIVAN GIVEN. PT STILL HAVE SEIZURE. BEDSIDE IN CT. PT THEN TAKEN BACK TO ICU FOR INTUBATION. BEDSIDE. PT INTUBATED AT 1016 WITH 7.5 TUBE. OG TUBE PLACED TO LIS. TAO UNABLE TO BE PLACED AFTER 3 RN'S HAVE ATTEMPTED. UROLOGY CONSULTED. PICC TEAM CONSULTED. PROP, FENT, AND VERSED DRIP GAVI FOR SEDATION PER .
--- NOTE | 2022-01-11 18:18 | NUR ---
NOTIFIED OF BRADYCARDIA. NO NEW ORDERS.
--- NOTE | 2022-01-11 18:21 | NUR ---
NO SEDATION VACATION AT THIS TIME. D/T RECENT INTUBATION AND SEIZURES. SEDATION DECREASED RECENTLY DUE TO DUNCAN.
--- NOTE | 2022-01-11 18:53 | NUR ---
Pt becoming agitated and restless. HR in the 80's and bp 110/68. Sedation adjusted.
--- NOTE | 2022-01-11 19:18 | NUR ---
REPORT CALLED TO ALEXA DYE AT . ALL QUESTION ANSWERED. EMS ETA OF 1 HR.
--- NOTE | 2022-01-11 21:13 | NUR ---
0849 - PT D/C TO [facility] AT THIS TIME IN STABLE CONDITION. REPORT CALLED TO RECIEVING FACILTIY ON PREVIOUS SHIFT. REPORT GIVEN TO AND PT LEFT W/ EMS AND [employer]A CO OFFICER. VSS. PT SEDATED AND ON VENTILATOR. LINES, TUBES LEFT IN PLACE FOR TRANSFER TO OTHER FACILTIY. NO DISTRESS OR COMPLICATIONS NOTED.
== END 2022-01-11 20:49 | disposition short-term general hospital (02) | DRG 100 ==
LOC: COL.ER 21:58 → ICU 01-10 01:54
PROVIDERS: Emergency Medicine; Internal Medicine; Nurse Practitioner Family; Urology; ADMIT Student in an Organized Health Care Education/Training Program
PROC: 5A1935Z Respiratory Ventilation, Less than 24 Consecutive Hours (ICD-10-PCS; 2022-01-11)
PROC: 0T7D8ZZ Dilation of Urethra, Via Natural or Artificial Opening Endoscopic (ICD-10-PCS; 2022-01-11)
PROC: 02HV33Z Insertion of Infusion Device into Superior Vena Cava, Percutaneous Approach (ICD-10-PCS; 2022-01-11)
PROC: 0BH17EZ Insertion of Endotracheal Airway into Trachea, Via Natural or Artificial Opening (ICD-10-PCS; principal; 2022-01-11 16:30)
DX: G40.801 Other epilepsy, not intractable, with status epilepticus (principal); U07.1 COVID-19; J12.82 Pneumonia due to coronavirus disease 2019; E87.2 Acidosis; K92.1 Melena; Z21 Asymptomatic human immunodeficiency virus [HIV] infection status; F41.9 Anxiety disorder, unspecified; F32.A Depression, unspecified; G47.00 Insomnia, unspecified; I95.9 Hypotension, unspecified; D64.9 Anemia, unspecified; E55.9 Vitamin D deficiency, unspecified; S09.8XXA Other specified injuries of head, initial encounter; J45.909 Unspecified asthma, uncomplicated; W06.XXXA Fall from bed, initial encounter; Y92.238 Other place in hospital as the place of occurrence of the external cause; R10.9 Unspecified abdominal pain; Y93.89 Activity, other specified; Z85.028 Personal history of other malignant neoplasm of stomach; Z88.0 Allergy status to penicillin; Z90.89 Acquired absence of other organs
CPT/HCPCS: OP; A4314; C1751; C1892; G0378; J1650; J1885; J1953; J2060; J2405; J2704; J3010; J3360; J7030